=== PATIENT | male | born 1965 | race African-American/Black ===

== ENCOUNTER 2017-11-19 18:25 | Emergency (ER) | payer OTHER ==
[~2017-11-19] VITALS: Ht 170.2 cm; Wt 76.4 kg
[~2017-11-19 18:25] MED LIST: 00186-0372-20 IH; LIPITOR 10MG10 MG PO; RT SPIRIVA18 MCG IH; ZESTRIL 20MG TA20 MG PO
[2017-11-19 18:32] VITALS: TEMP 98.6
[2017-11-19] MEDS ORDERED: GLUCOPHAGE500 MG/TAB PO (18:35)
[2017-11-19] MEDS ORDERED: LIPITOR20 MG PO (20:10)
[2017-11-19] MEDS ORDERED: FLEXERIL 1010 MG/TAB PO (20:23)
[2017-11-19 21:05] VITALS: BP 143/84; PULSE 93
== END 2017-11-19 21:14 | disposition home or self-care (01) ==
LOC: COL.ER 18:25
DX: M54.6 Pain in thoracic spine (principal); E11.9 Type 2 diabetes mellitus without complications; I10 Essential (primary) hypertension; E78.5 Hyperlipidemia, unspecified; Z79.84 Long term (current) use of oral hypoglycemic drugs; X58.XXXA Exposure to other specified factors, initial encounter
CPT/HCPCS: J1885; J2360

== ENCOUNTER → 2018-02-05 | Outpatient (CLI) | payer OTHER, BC ==
[~2018-02-05] MED LIST changes: +FLEXERIL 1010 MG/TAB PO; +GLUCOPHAGE500 MG/TAB PO; +LIPITOR20 MG PO
== END ==
LOC: MHCPAIN 10:51
DX: G89.29 Other chronic pain (principal); M54.12 Radiculopathy, cervical region; M47.812 Spondylosis without myelopathy or radiculopathy, cervical region
CPT/HCPCS: G0463

== ENCOUNTER 2023-11-19 07:57 | Emergency (ER) | payer OTHER ==
[~2023-11-19] VITALS: Ht 172.7 cm; Wt 72.7 kg
[~2023-11-19 07:57] MED LIST changes: +ASPIRIN 81M81 MG/TA2 PO; +DESYREL 50MG50 MG PO; +FLONASE NASAL S16 GM; +IMODIUM 2MG CAPS2 MG PO; +PLAVIX 75MG TAB75 MG PO; +PRINIVIL10 MG PO; +PRINIVIL20 MG PO
[2023-11-19 08:03] VITALS: TEMP 97.8
[2023-11-19 09:03] VITALS: BP 144/85; PULSE 85
== END 2023-11-19 09:03 | disposition home or self-care (01) ==
LOC: COL.ER 07:57
DX: T78.3XXA Angioneurotic edema, initial encounter (principal); J45.909 Unspecified asthma, uncomplicated; F17.210 Nicotine dependence, cigarettes, uncomplicated; Z79.899 Other long term (current) drug therapy
CPT/HCPCS: J1100